=== PATIENT | male | born 1960 | race Caucasian/White ===

== ENCOUNTER 2024-01-18 07:02 | Outpatient (CLI) | payer BC, SELFPAY ==
--- NOTE | 2024-01-18 07:15 | MR_ITS ---
[facility] [address] [facility] [address] Phone:?[phone] Fax:?[phone] Referring Physician Information: Ahsan Benitez M.D. [address] [place] [id number] Phone:?[phone] Fax:?[phone] Patient:?Chad Patten Vince.O.B:?1960 Sex:?Male Phone:?[phone] [facility] MRN:?[id number] Exam Date:?01/18/2024 EXAM: MRI EXAMINATION OF THE LEFT SHOULDER CLINICAL INFORMATION: Left shoulder pain. No history of surgery to this area. Possible rotator cuff tear. TECHNICAL INFORMATION: Coronal STIR as well as axial, sagittal and coronal PD and T2-weighted images acquired. No prior studies for comparison. INTERPRETATION: Bones: There is no Hill-Sachs impaction deformity. No other occult fracture or osseous contusion. Minimal marrow edema signal cystic change alongside the AC joint. Rotator Cuff: Series 8 images 4 through 8 as well as series 4 images 9 through 12 demonstrate a 1.2 cm AP by 1.2 cm mediolateral undersurface partial-thickness tear involving the supraspinatus tendon insertion. This appears to maximally involve 2/3-3/4 of the tendon fiber thickness. Mild to moderate infraspinatus tendinopathy. The teres minor tendon is intact. Mild subscapularis tendinopathy. No appreciable rotator cuff muscle belly atrophy. Coracoacromial arch: There is no discrete subacromial osseous spur. The bony acromiohumeral interval is measuring 6 mm. There is no thickening identified of the coracoacromial ligament. Acromioclavicular joint: Moderate AC joint DJD. No deformity of the underlying supraspinatus tendon. Mild fluid and edema signal within the subacromial/subdeltoid bursa areas. Biceps tendon: The long head biceps tendon is intact and nondisplaced from the bicipital groove. No evidence for a tendon tear or any appreciable changes of tendinopathy. There is a moderate appearance of tenosynovitis. Glenohumeral joint and labrum: No significant glenohumeral joint effusion. No discrete loose body within the joint. 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 Patchy thinning of the apical cartilage without full-thickness cartilage loss involves the glenoid. There is tearing identified through the superior aspect of the labrum. There is additional tearing involving the posterior inferior aspect of the labrum. No discrete paralabral cyst is identified. CONCLUSION: 1. There is a moderate-sized undersurface partial tear of the supraspinatus tendon insertion, maximally involving 2/3-3/4 of the tendon fiber thickness. 2. Mild to moderate infraspinatus and mild subscapularis tendinopathy. 3. Moderate AC joint with mild narrowing of the acromion. Mild subacromial/subdeltoid bursitis. 4. Unremarkable and intact long head biceps tendon. There is a moderate appearance of bicipital tenosynovitis. 5. Patchy glenohumeral chondromalacia includes a small to moderate-sized segment of grade IV involvement overlying the humeral head at the superior glenohumeral joint. 6. Tearing involves the superior and posterior inferior labrum. KES Electronically signed on 01/18/2024 10:34:00 AM by Des Romero M.D.
== END 2024-01-18 07:03 | disposition home or self-care (01) ==
PROVIDERS: PCP Family Medicine; Visit Provider Orthopaedic Surgery
DX: M25.512 Pain in left shoulder (principal); M75.102 Unspecified rotator cuff tear or rupture of left shoulder, not specified as traumatic; M75.52 Bursitis of left shoulder; M94.212 Chondromalacia, left shoulder
CPT/HCPCS: 73221

== ENCOUNTER 2025-06-14 11:15 | Outpatient (RCR) | payer MEDICARE, SELFPAY | END 2025-06-21 12:38 | disposition home or self-care (01) | PROVIDERS: PCP Family Medicine; Visit Provider Family Medicine | DX: M54.2 Cervicalgia (principal); G89.29 Other chronic pain; Z51.89 Encounter for other specified aftercare | CPT/HCPCS: 97110; 97112; 97140; 97161 ==